=== PATIENT | female | born 1965 | race Hispanic/Latino ===

== ENCOUNTER 2018-05-05 16:04 | Outpatient (CLI) | payer OTHER ==
--- NOTE | 2018-05-05 17:09 | RAD ---
LEFT HAND PAIN 3 VIEWS: HISTORY: Left hand pain. Fall 10 days ago. FINDINGS/IMPRESSION: No acute fracture or dislocation identified. POS: TITUS
== END 2018-05-05 16:05 | disposition home or self-care (01) ==
LOC: BICRAD 16:04
PROVIDERS: ATTEND Family Medicine
DX: M79.642 Pain in left hand (principal)

== ENCOUNTER 2020-10-21 09:22 | Outpatient (CLI) | payer BC, SELFPAY | END 2020-10-21 09:23 | disposition home or self-care (01) | LOC: BICRAD 09:22 | PROVIDERS: ATTEND Internal Medicine | DX: M79.644 Pain in right finger(s) (principal); M18.11 Unilateral primary osteoarthritis of first carpometacarpal joint, right hand ==

== ENCOUNTER 2021-04-11 13:58 | Outpatient (CLI) | payer BC | END 2021-04-11 13:59 | disposition home or self-care (01) | LOC: BICRAD 13:58 | PROVIDERS: ATTEND Family Medicine | DX: M25.572 Pain in left ankle and joints of left foot (principal); M79.672 Pain in left foot; M79.605 Pain in left leg; M79.89 Other specified soft tissue disorders ==